=== PATIENT | male | born 1990 | race Caucasian/White ===

== ENCOUNTER 2025-03-02 00:05 | Day surgery (SDC) | payer BC, SELFPAY ==
[2025-03-01 15:39] VITALS: BMI 22.3
--- OUTSIDE RECORDS SUMMARY | 2025-03-02 00:08 | XMS_ITS | Clinical Summary ---
Author Organization [facility] Address [address] [place] [address] Care Team Providers Care Slab Puller Name Role Phone Diego Ulloa MD Primary Care Provid er Allergies No known active allergies Medications clobetasoL (TEMOVATE) 0.05 % creamIndication s:Psoriasis Apply topically 2 (two) times a day 60 g 5 3 Active fluocinonide (LIDEX) 0.05 % creamIndication s:Psoriasis Apply topically 2 (two) times a day 30 g 5 3 Active Additional Information Patient not taking.Reported on 12/02/2024 clobetasoL (TEMOVATE) 0.05 % external solutionIndicat ions:Dermatosis of the Scalp Apply topically 2 (two) times a day 60 mL 5 3 Active hydrOXYzine (ATARAX) 10 mg tabletIndicatio ns:Generalized anxiety disorder Take 1-2 tablets (10-20 mg total) by mouth every 8 (eight) hours as needed for itching 36 tablet 2 4 Active ketoconazole (NIZORAL) 2 % shampoo 4 Active meclizine (ANTIVERT) 12.5 mg tabletIndicatio ns:Dizziness Take 1 tablet (12.5 mg total) by mouth 3 (three) times a day as needed for dizziness 90 tablet 4 4 Active Additional Information Patient not taking.Reported on 12/02/2024 baclofen (LIORESAL) 10 mg tabletIndicatio ns:Neck pain Take 1 tablet (10 mg total) by mouth 3 (three) times a day 30 tablet 2 4 Active Active Problems Problem Noted Date Diagnosed Date Gilbert syndrome 12/02/2024 Encounters Date Type Department Care Team Description 02/22/2025 2:45 PM CDT Lab [facility] Lab [address] [place] [id number] 01/06/2025 2:35 PM ASSOCIATE GENETICS PROFESSOR Lab [facility] [address] [place] [address] 12/02/2024 9:15 AM ASSOCIATE GENETICS PROFESSOR Office Visit [facility] [address] [place] [phone] Diego Ulloa MD Sore throat (Primary Dx); Neck pain; Dizziness; Dysfunction of both eustachian tubes; Psoriasis from Last 3 Months Immunizations Immunization Administration Dates Next Due Influenza, Unspecified 08/11/2024(Deferr ed: Patient Refused),08/27/2023(Deferred: Patient Refused),10/23/2022(Deferred: Patient Refused),10/31/2021(Deferred: Patient Refused) Surgical History Surgery Date Site/Laterality Comments VASECTOMY Medical History Medical History Date Comments Psoriasis Family History Medical History Relation Name Comments Heart attack Father Asthma Mother Relation Name Status Comments Father Mother Social History Tobacco Use Types Packs/Day Years Used Date Smoking Tobacco: Never Smokeless Tobacco: Never Tobacco Cessation:Counseling Given: Not Answered AUDIT-C Answer Date Recorded Q1: How often do you have a drink containing alcohol? Never 01/21/2023 Q2: How many drinks containi ng alcohol do you have on a typical day when you are drinking? Patient does not drink Q3: How often do you have si x or more drinks on one occasion? Never 01/21/2023 PHQ-2 Answer Date Recorded PHQ-2 Total Score 0 08/02/2024 Personal Safety Answer Date Recorded Have you ever been in or are you currently in a harmful physical or emotional relationship or is someone making you feel afraid or unsafe? Denies 08/06/2024 Sex and Gender Information Value Date Recorded Sex Assigned at Not on file Legal Sex Male 5:52 PM ASSOCIATE GENETICS PROFESSOR Gender Identity Male 08/24/2022 2:03 PM CDT Sexual Orientation Not on file Obstetrics History Last Filed Vital Signs Vital Sign Reading Time Taken Comments Blood Pressure 102/66 12/02/2024 9:19 AM ASSOCIATE GENETICS PROFESSOR Pulse 70 12/02/2024 9:19 AM ASSOCIATE GENETICS PROFESSOR Temperature 36.4 C (97.6 F) 12/02/2024 9:19 AM ASSOCIATE GENETICS PROFESSOR Respiratory Rate 16 12/02/2024 9:19 AM ASSOCIATE GENETICS PROFESSOR Oxygen Saturation 99% 12/02/2024 9:19 AM ASSOCIATE GENETICS PROFESSOR Inhaled Oxygen Concentration - - Weight 72.7 kg (160 lb 3.2 oz) 12/02/2024 9:19 A M ASSOCIATE GENETICS PROFESSOR Height 177.8 cm (5' 10 ) 12/02/2024 9:19 AM ASSOCIATE GENETICS PROFESSOR Body Mass Index 22.99 12/02/2024 9:19 AM ASSOCIATE GENETICS PROFESSOR Plan of Treatment Health Maintenance Due Date Last Done Comments DTaP/Tdap/Td Vaccine (1 - Tdap) 1999 Varicella Vaccines (1 of 2 - 13+ 2-dose series) 2001 Regular Well Visit/Exam 18-64 2006 Influenza Vaccine (Season Ended) 2025 Depression Screening 08/02/2025 08/02/2024, 01/21/2023, 01/21/2023 Hepatitis B Screening Completed 09/27/2024 Hepatitis C Screening Completed 09/27/2024 HPV Vaccines Aged Out No longer eligi ble based on patient's age to complete this topic Pneumococcal vaccine <65 Aged Out No longer eligible based on patient's age to complete this topic Procedures Procedure Name Priority Date/Time Associated Diagnosis Comments AMYLASE Routine 02/22/2025 2:55 PM CDT LIPASE Routine 02/22/2025 2:55 PM CDT HEPATIC FUNCTION PANEL Routine 2:55 PM CDT T3, FREE Routine 01/06/2025 2:52 PM ASSOCIATE GENETICS PROFESSOR T4, FREE Routine 01/06/2025 2:52 PM ASSOCIATE GENETICS PROFESSOR HOMOCYSTEINE Routine 01/06/2025 2:52 PM ASSOCIATE GENETICS PROFESSOR LIPOPROTEIN A (LPA) Routine 01/06/2025 2 :52 PM ASSOCIATE GENETICS PROFESSOR THYROGLOBULIN ANTIBODIES Routine 01/06/2025 2:52 PM ASSOCIATE GENETICS PROFESSOR RETICULOCYTES Routine 01/06/2025 2:52 PM ASSOCIATE GENETICS PROFESSOR THYROID PEROXIDASE ANTIBODY Routine 01/06/2025 2:52 PM ASSOCIATE GENETICS PROFESSOR HEPATITIS C ANTIBODY Routine 09/27/2024 11:30 AM ASSOCIATE GENETICS PROFESSOR from Last 3 Months or Most Recently Relevant to Health Maintenance Results * Lipase (02/22/2025 2:55 PM CDT) Lipase 28 10 - 99 Units/L Comment:Testing performed by : [address] [address] Blood 02/22/2025 2:55 PM CDT 02/22/2025 4:58 PM CDT Sonia Madera BUTTING SAW OPERATOR LAB BLOOD ORDERABLES Fin al Result Performing Organization Address [facility] Co de Phone Number [address] [place] [address] * Amylase (02/22/2025 2:55 PM CDT) Amylase 35 30 - 99 Units/L Comment:Testing performed by : [address] [address] Blood 02/22/2025 2:55 PM CDT 02/22/2025 4:58 PM CDT Sonia Madera NP LAB BLOOD ORDERABLES Fin al Result Performing Organization Address City/[facility]/ZIP Co de Phone Number [address] [place] [address] * (ABNORMAL) Hepatic function panel (02/22/2025 2:55 PM CDT) [facility] Bilirubin, total 1.5(H) 0.1 - 1.2 mg/dL Comment:Testing performed by : [address] [address] Bilirubin, direct 0.5(H) 0.1 - 0.3 mg/dL RAFAEL Comment:Testing performed by : [address] [address] Protein, pl 7.1 6.5 - 8.5 g/dL RAFAEL Comment:Testing performed by : [address] [address] Albumin 4.6 3.5 - 5.0 g/dL RAFAEL Comment:Testing performed by : [address] [address] Alk phos 71 40 - 130 Units/L RAFAEL Comment:Testing performed by : [address] [address] ALT 29 7 - 55 Units/L RAFAEL Comment:Testing performed by : [address] [address] AST 23 10 - 50 Units/L RAFAEL Comment:Testing performed by : [address] [address] Blood 02/22/2025 2:55 PM CDT 02/22/2025 4:58 PM CDT us Sonia Madera BUTTING SAW OPERATOR LAB BLOOD ORDERABLES Fin al Result RAFAEL [address] [place] [address] * Thyroglobulin antibodies (01/06/2025 2:52 PM ASSOCIATE GENETICS PROFESSOR) [facility] Anti-thyroglobulin <1.8 <4.0 IUnits/mL [place] ref [facility] Comment: ADDITIONAL INFORMATION PLEASE NOTE: The given thyroglobulin antibody (TgAb) reference cutoff of <4.0 IU/mL is for the evaluation of autoimmune thyroiditis. A cutoff of <1.8 IU/mL may be more suitable for the detection of potential thyroglobulin antibody (TgAb) interference in thyroglobulin immunoassays. The thyroglobulin antibody testing method is an immunoenzymatic assay manufactured by [employer] and performed on the [employer] DXI 800. Values obtained from different assay methods or kits may be different and cannot be used interchangeably. The results cannot be interpreted as absolute evidence for the presence or absence of malignant disease. Test Performed by: [facility] [address] [place] [address] Work And Family Life Consultant: Lynn Vides Ph.D.; CLIA# [id number] Testing performed by: [facility], [address] [place] [address]., [address] Blood 01/06/2025 2:52 PM ASSOCIATE GENETICS PROFESSOR 01/06/2025 3:05 PM ASSOCIATE GENETICS PROFESSOR Sonia Madera LAB BLOOD ORDERABLES Fin al Result Performing Organization Address City/[facility] Co de Phone Number RAFAEL [address] [facility] [place] [address] [place] ref [facility] * Thyroid peroxidase antibody (TPO) (01/06/2025 2:52 PM ASSOCIATE GENETICS PROFESSOR) Anti Thyroid Peroxidase <30 <=34 IUnits/mL Comment: ATPO Interpretive Data Results may be up to 28% higher in patients receiving Itraconazole. Current interpretive data was last revised 2021. Testing performed by: [facility], [address] [place]., [address] Blood 01/06/2025 2:52 PM ASSOCIATE GENETICS PROFESSOR 01/06/2025 5:27 PM ASSOCIATE GENETICS PROFESSOR Sonia Madera BUTTING SAW OPERATOR LAB BLOOD ORDERABLES Fin al Result RAFAEL [address] [facility] [place] [address] * Lipoprotein a (LPa) (01/06/2025 2:52 PM ASSOCIATE GENETICS PROFESSOR) [facility] Lipoprotein A 18 <75 nmol/L [place] ref [facility] Comment: ADDITIONAL INFORMATION Please notice that Lp(a) values are reported in molar units (nmol/L). These units are recommended by professional society guidelines and expert opinion statements. Measured results and risk thresholds are higher than those generated using mass units (mg/dL). Cardiovascular risk increases starting at 75 nmol/L. Lp(a) >=125 nmol/L is considered a risk enhancing factor by the [place] [employer]. This test has been modified from the city carrier's instructions. Its performance characteristics were determined by [facility] in a manner consistent with CLIA requirements. This test has not been cleared or approved by the U.S. Food and Drug Administration. Test Performed by: [place] [address] Work And Family Life Consultant: Lynn Vides Ph.D.; CLIA# [id number] Testing performed by: [address] [address] Blood 01/06/2025 2:52 PM ASSOCIATE GENETICS PROFESSOR 01/06/2025 3:05 PM ASSOCIATE GENETICS PROFESSOR us Sonia Madera BUTTING SAW OPERATOR LAB BLOOD ORDERABLES Fin al Result Performing Organization Address [facility] Co de Phone Number RAFAEL [address] [facility] [place] [address] [place] ref [facility] * Reticulocyte Count (01/06/2025 2:52 PM ASSOCIATE GENETICS PROFESSOR) [facility] Retics, absolute 0.054 0.020 - 0.087 M/cumm Comment:Testing performed by : [address] [address] Retics 1.0 0.4 - 2.9 % RAFAEL STEIN Comment:Testing performed by : [facility], [address] [place] [address]., [address] Reticulocyte Hgb 33.3 30.5 - 38.0 pg RAFAEL STEIN Comment:Testing performed by : [facility], [address] [place] [address]., [address] Blood 01/06/2025 2:52 PM ASSOCIATE GENETICS PROFESSOR 01/06/2025 3:05 PM ASSOCIATE GENETICS PROFESSOR Sonia Madera BUTTING SAW OPERATOR LAB BLOOD ORDERABLES Fin al Result Performing Organization Address City/[facility]/ZIP Co de Phone Number PARRISHJO-ANN [address] [place] [address] * T3, free (01/06/2025 2:52 PM ASSOCIATE GENETICS PROFESSOR) Free T3 3.2 2.0 - 4.4 pg/mL Blood 01/06/2025 2:52 PM ASSOCIATE GENETICS PROFESSOR 01/06/2025 4:35 PM ASSOCIATE GENETICS PROFESSOR Sonia Madera BUTTING SAW OPERATOR LAB BLOOD ORDERABLES Fin al Result Performing Organization Address [facility] Co de Phone Number PARRISH[address] [place] [address] * T4, free (01/06/2025 2:52 PM ASSOCIATE GENETICS PROFESSOR) Free T4 1.37 0.90 - 1.70 ng/dL Comment:Testing performed by : [facility], [address] [place] [address]., [address] Blood 01/06/2025 2:52 PM ASSOCIATE GENETICS PROFESSOR 01/06/2025 3:05 PM ASSOCIATE GENETICS PROFESSOR Sonia Madera BUTTING SAW OPERATOR LAB BLOOD ORDERABLES Fin al Result PARRISH[address] [place] [address] * (ABNORMAL) Homocysteine (01/06/2025 2:52 PM ASSOCIATE GENETICS PROFESSOR) Homocysteine 18.2(H) 0.0 - 15.0 mcmol/L Comment:Testing performed by : [facility], [address] [place]., [address] Blood 01/06/2025 2:52 PM ASSOCIATE GENETICS PROFESSOR 01/06/2025 5:27 PM ASSOCIATE GENETICS PROFESSOR Sonia Madera BUTTING SAW OPERATOR LAB BLOOD ORDERABLES Fin al Result Performing Organization Address City/[facility]/ZIP Co de Phone Number RAFAEL [address] [facility] [place] [address] * Hepatitis C antibody Blood (09/27/2024 11:30 AM ASSOCIATE GENETICS PROFESSOR) Pathologist [facility] Hep C Ab Nonreactive Nonreactive Comment: Antibodies to HCV not detected. Does NOT exclude the possibility of recent exposure to HCV. Current interpretive data was last revised on 22 Interpretive Data Nonreactive: Antibodies to HCV not detected. Does NOT exclude the possibility of recent exposure to HCV. Equivocal: Equivocal for HCV antibodies. Supplemental molecular testing will be automatically performed to determine infection status in accordance with current CDC screening recommendations. Reactive: Positive for HCV antibodies. This may represent current or past HCV infection. Supplemental molecular testing will be automatically performed to determine current infection status in accordance with current CDC screening recommendations. Interpretive data was last revised on 2020. Blood 09/27/2024 11:3 0 AM ASSOCIATE GENETICS PROFESSOR 09/27/2024 2:42 PM ASSOCIATE GENETICS PROFESSOR us Tammy WILKS LAB MICROBIOLOGY - GENERAL ORDERABLES Final Result Performing Organization Address City/[facility] Co de Phone Number [address] [employer] [place] [address] from Last 3 Months or Most Recently Relevant to Health Maintenance Insurance [place] Care Teams Slab Puller Relationship Specialty Start Date End Date Diego Ulloa MD [employer] [address] [place] [address] PCP - General Family Medicine 01/21/23
--- OUTSIDE RECORDS SUMMARY | 2025-03-02 00:08 | XMS_ITS | Clinical Summary ---
Author Organization [email or web address] [facility] Address [address] [place] [phone] Care Team Providers Care Nursing Executive Name Role Phone Unavailable Primary Care Provider Unavailabl e Allergies No known active allergies Medications No known medications Active Problems No known active problems Social History Tobacco Use Types Packs/Day Years Used Date Smoking Tobacco: Never Alcohol Use Standard Drinks/Week Comments Never 0 (1 standard drink = 0.6 oz pur e alcohol) Sex and Gender Information Value Date Recorded Sex Assigned at Not on file Legal Sex Male 10:20 AM CDT Gender Identity Not on file Sexual Orientation Not on file Last Filed Vital Signs Vital Sign Reading Time Taken Comments Blood Pressure - - Pulse - - Temperature - - Respiratory Rate - - Oxygen Saturation - - Inhaled Oxygen Concentration - - Weight 79.4 kg (175 lb) 02/25/2022 11:10 AM CDT Height 177.8 cm (5' 10 ) 02/25/2022 11:10 AM CDT Body Mass Index 25.11 02/25/2022 11:10 AM CDT Plan of Treatment Health Maintenance Due Date Last Done Comments DTAP/TDAP/TD VACCINES (1 - Tdap) 2007 HEPATITIS B VACCINES (1 of 3 - 19+ 3-dose series) 2007 INFLUENZA VACCINE (#1) 2024 HPV VACCINES Aged Out No longer eligi ble based on patient's age to complete this topic [place] [address] [place] [address] Lola Pirindola ACCESS CHOICE [facility]
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
--- OUTSIDE RECORDS SUMMARY | 2025-03-02 00:08 | XMS_ITS | CONTINUITY OF CARE DOCUMENT ---
Author Name abbey potter Address Unknown Organization [facility] Address [address] [place] [address] [address] [place] [address] Phone [phone] Care Team Providers Care Amortization Clerk Name Role Phone abbey potter Unavailable Unavailable
--- OUTSIDE RECORDS SUMMARY | 2025-03-02 00:08 | XMS_ITS | Referral Summary ---
Author Organization [facility] Address [address] [place] [address] Care Team Providers Care Traffic Control Supervisor Name Role Phone Diego Ulloa MD Primary Care Provid er Encounters Date Type Department Care Team Description 02/22/2025 2:45 PM CDT Lab [facility] [address] [place] [id number] 01/06/2025 2:35 PM HOT OILER Lab [facility] [address] [place] [id number] 12/02/2024 9:15 AM HOT OILER Office Visit [facility] [address] [phone] Diego Ulloa MD Sore throat (Primary Dx); Neck pain; Dizziness; Dysfunction of both eustachian tubes; Psoriasis from Last 3 Months Allergies No known active allergies Medications clobetasoL [...] Noted Date Diagnosed Date Gilbert syndrome 12/02/2024 Immunizations Immunization Administration Dates Next Due Influenza, Unspecified 08/11/2024(Deferr ed: Patient Refused),08/27/2023(Deferred: Patient Refused),10/23/2022(Deferred: Patient Refused),10/31/2021(Deferred: Patient Refused) Social History Tobacco Use Types Packs/Day Years [...] on file Legal Sex Male 5:52 PM HOT OILER Gender Identity Male 08/24/2022 2:03 PM CDT Sexual Orientation Not on file Last Filed Vital Signs Vital Sign Reading Time Taken Comments Blood Pressure 102/66 12/02/2024 9:19 AM HOT OILER Pulse 70 12/02/2024 9:19 AM HOT OILER Temperature 36.4 C (97.6 F) 12/02/2024 9:19 AM HOT OILER Respiratory Rate 16 12/02/2024 9:19 AM HOT OILER Oxygen Saturation 99% 12/02/2024 9:19 AM HOT OILER Inhaled Oxygen Concentration - - Weight 72.7 kg (160 lb 3.2 oz) 12/02/2024 9:19 A M HOT OILER Height 177.8 cm (5' 10 ) 12/02/2024 9:19 AM HOT OILER Body Mass Index 22.99 12/02/2024 9:19 AM HOT OILER Plan of Treatment Not on file Procedures Procedure Name Priority Date/Time Associated Diagnosis Comments AMYLASE Routine 02/22/2025 2:55 PM CDT LIPASE Routine 02/22/2025 2:55 PM CDT HEPATIC FUNCTION PANEL Routine 2:55 PM CDT T3, FREE Routine 01/06/2025 2:52 PM HOT OILER T4, FREE Routine 01/06/2025 2:52 PM HOT OILER HOMOCYSTEINE Routine 01/06/2025 2:52 PM HOT OILER LIPOPROTEIN A (LPA) Routine 01/06/2025 2 :52 PM HOT OILER THYROGLOBULIN ANTIBODIES Routine 01/06/2025 2:52 PM HOT OILER RETICULOCYTES Routine 01/06/2025 2:52 PM HOT OILER THYROID PEROXIDASE ANTIBODY Routine 01/06/2025 2:52 PM HOT OILER HEPATITIS C ANTIBODY Routine 09/27/2024 11:30 AM HOT OILER from Last 3 Months or Most Recently Relevant to Health Maintenance Results * Lipase (02/22/2025 2:55 PM CDT) Pathologist [facility] Lipase 28 10 - 99 Units/L Comment:Testing performed by : [address] [address] Blood 02/22/2025 2:55 PM CDT 02/22/2025 4:58 PM CDT Sonia Madera TAKE UP OPERATOR LAB BLOOD ORDERABLES Fin al Result Performing Organization Address [facility] Co de Phone Number [address] [place] [address] * Amylase (02/22/2025 2:55 PM CDT) [facility] Amylase 35 30 - 99 Units/L Comment:Testing performed by : [address] [address] Blood 02/22/2025 2:55 PM CDT 02/22/2025 4:58 PM CDT Sonia Madera TAKE UP OPERATOR LAB BLOOD ORDERABLES Fin al Result Performing Organization Address City/[facility] Co de Phone Number [address] [place] [address] * (ABNORMAL) Hepatic function panel (02/22/2025 2:55 PM CDT) [facility] Bilirubin, total 1.5(H) 0.1 - 1.2 mg/dL Comment:Testing performed by : [address] [address] Bilirubin, direct 0.5(H) 0.1 - 0.3 mg/dL RAFAEL Comment:Testing performed by : [address] [address] Protein, pl 7.1 6.5 - 8.5 g/dL RAFAEL Comment:Testing performed by : [address] [address] Albumin 4.6 3.5 - 5.0 g/dL RAFAEL Comment:Testing performed by : [facility], [address] [place] [address]., [address] Alk phos 71 40 - 130 Units/L RAFAEL Comment:Testing performed by : [facility], [address] [place] [address]., [address] ALT 29 7 - 55 Units/L RAFAEL Comment:Testing performed by : [address] [address] AST 23 10 - 50 Units/L RAFAEL Comment:Testing performed by : [address] [address] Blood 02/22/2025 2:55 PM CDT 02/22/2025 4:58 PM CDT us Sonia Madera TAKE UP OPERATOR LAB BLOOD ORDERABLES [facility] al Result [facility] [address] [facility] [place] [address] * Thyroglobulin antibodies (01/06/2025 2:52 PM HOT OILER) Anti-thyroglobulin <1.8 <4.0 IUnits/mL [facility] ref Lab Comment: ADDITIONAL INFORMATION PLEASE NOTE: The given thyroglobulin antibody (TgAb) reference cutoff of <4.0 IU/mL is for the evaluation of autoimmune thyroiditis. A cutoff of <1.8 IU/mL may be more suitable for the detection of potential thyroglobulin antibody (TgAb) interference in thyroglobulin immunoassays. The thyroglobulin antibody testing method is an immunoenzymatic assay manufactured by [employer] and performed on the [employer] DXI 800. Values obtained from different assay methods or kits may be different and cannot be used interchangeably. The results cannot be interpreted as absolute evidence for the presence or absence of malignant disease. Test Performed by: [facility] [address] [place] [address] Resin Mixer: Lynn Vides Ph.D.; CLIA# [id number] Testing performed by: [facility], [address] [place] [address]., [address] Blood 01/06/2025 2:52 PM HOT OILER 01/06/2025 3:05 PM HOT OILER Sonia Madera TAKE UP OPERATOR LAB BLOOD ORDERABLES Fin al Result Performing Organization Address [facility] Co de Phone Number [address] [place] [address] [facility] ref Lab * Thyroid peroxidase antibody (TPO) (01/06/2025 2:52 PM HOT OILER) Anti Thyroid Peroxidase <30 <=34 IUnits/mL Comment: ATPO Interpretive Data Results may be up to 28% higher in patients receiving Itraconazole. Current interpretive data was last revised 2021. Testing performed by: [facility], [address] [place]., [address] Blood 01/06/2025 2:52 PM HOT OILER 01/06/2025 5:27 PM [facility]ER [facility] BLOOD ORDERABLES Fin al Result Performing Organization Address [facility] de Phone Number [address] [address] * Lipoprotein a (LPa) (01/06/2025 2:52 PM HOT OILER) Lipoprotein A 18 <75 nmol/L [facility] ref Lab Comment: ADDITIONAL INFORMATION Please notice that Lp(a) values are reported in molar units (nmol/L). These units are recommended by professional society guidelines and expert opinion statements. Measured results and risk thresholds are higher than those generated using mass units (mg/dL). Cardiovascular risk increases starting at 75 nmol/L. Lp(a) >=125 nmol/L is considered a risk enhancing factor by the [place] [employer]. This test has been modified from the taffy candy maker's instructions. Its performance characteristics were determined by [facility] in a manner consistent with CLIA requirements. This test has not been cleared or approved by the U.S. Food and Drug Administration. Test Performed by: [address] [address] Resin Mixer: Lynn Vides Ph.D.; CLIA# [id number] Testing performed by: [address] [address] Blood 01/06/2025 2:52 PM HOT OILER 01/06/2025 3:05 PM HOT OILER Sonia Madera LAB BLOOD ORDERABLES Fin al Result [facility] [address] [facility] [place] [address] [facility] Lab * Reticulocyte Count (01/06/2025 2:52 PM HOT OILER) Retics, absolute 0.054 0.020 - 0.087 M/cumm Comment:Testing performed by : [address] [address] Retics 1.0 0.4 - 2.9 % RAFAEL Comment:Testing performed by : [address] [address] Reticulocyte Hgb 33.3 30.5 - 38.0 pg RAFAEL Comment:Testing performed by : [address] [address] Blood 01/06/2025 2:52 PM HOT OILER 01/06/2025 3:05 PM HOT OILER Sonia Madera TAKE UP OPERATOR LAB BLOOD ORDERABLES Fin al Result [facility] [address] [facility] [place] [address] * T3, free (01/06/2025 2:52 PM HOT OILER) [facility] Free T3 3.2 2.0 - 4.4 pg/mL Blood 01/06/2025 2:52 PM HOT OILER 01/06/2025 4:35 PM HOT OILER Sonia Madera TAKE UP OPERATOR LAB BLOOD ORDERABLES Fin al Result Performing Organization Address City/[facility]/ZIP Co de Phone Number [address] [place] [address] * T4, free (01/06/2025 2:52 PM HOT OILER) [facility] Free T4 1.37 0.90 - 1.70 ng/dL Comment:Testing performed by : [facility], [address] [place] [address], [address] Blood 01/06/2025 2:52 PM HOT OILER 01/06/2025 3:05 PM HOT OILER Sonia Madera TAKE UP OPERATOR LAB BLOOD ORDERABLES Fin al Result Performing Organization Address [facility] Co de Phone Number [address] [place] [address] * (ABNORMAL) Homocysteine (01/06/2025 2:52 PM HOT OILER) [facility] Homocysteine 18.2(H) 0.0 - 15.0 mcmol/L Comment:Testing performed by : [facility], [address] [place]., [address] Blood 01/06/2025 2:52 PM HOT OILER 01/06/2025 5:27 PM HOT OILER Sonia Madera TAKE UP OPERATOR LAB BLOOD ORDERABLES Fin al Result Performing Organization Address City/[facility]/ZIP Co de Phone Number [address] [place] [place] [address] * Hepatitis C antibody Blood (09/27/2024 11:30 AM HOT OILER) Hep C Ab Nonreactive Nonreactive Comment: Antibodies [...] on 2020. Blood 09/27/2024 11:3 0 AM HOT OILER 09/27/2024 2:42 PM HOT OILER Tammy WILKS LAB MICROBIOLOGY - GENERAL ORDERABLES Final Result [facility] [address] [facility] [place] [address] from Last 3 Months or Most Recently Relevant to Health Maintenance [place] [employer] [place] [employer] [place] Care Teams Traffic Control Supervisor Relationship Specialty Start Date End Date Diego Ulloa MD [facility] [address] [place] [address] PCP - General Family Medicine 01/21/23
--- OUTSIDE RECORDS SUMMARY | 2025-03-02 00:08 | XMS_ITS | Clinical Summary ---
Author Organization [facility] Address [address] [place] [address] Care Team Providers Care Reiki Practitioner Name Role Phone Unavailable Primary Care Provider Unavailabl e Source Comments [facility] [employer],non-owned Affiliates and Associated Physician Practices is amultiple site organization consisting of ambulatory clinics and hospital sitesin [place], [place], [place] and [place]. This disclosure is being madepursuant to the Care Everywhere program and may not contain all information available regarding this patient. Last updated 18.[facility] [employer] Allergies No known active allergies Medications * Be aware that medications may not be up to date on this document. Alwaysverify current medications with the patient. No known medications Social History Tobacco Use Types Packs/Day Years Used Date Smoking Tobacco: Never Smokeless Tobacco: Never Sex and Gender Information Value Date Recorded Sex Assigned at Not on file Legal Sex Male 9:14 AM CDT Gender Identity Not on file Sexual Orientation Not on file Last Filed Vital Signs Vital Sign Reading Time Taken Comments Blood Pressure 108/74 08/18/2019 10:57 AM CDT Pulse 108 08/18/2019 10:57 AM CDT Temperature 37.6 C (99.6 F) 08/18/2019 10:57 AM CDT Respiratory Rate 16 08/18/2019 10:57 AM CDT Oxygen Saturation 98% 08/18/2019 10:57 AM CDT Inhaled Oxygen Concentration - - Weight 72.6 kg (160 lb) 08/18/2019 10:57 AM CDT Height 177.8 cm (5' 10 ) 08/18/2019 10:57 AM CDT Body Mass Index 22.96 08/18/2019 10:57 AM CDT Plan of Treatment Health Maintenance Due Date Last Done Comments HIV SCREENING 2003 HEPATITIS C SCREENING 05/12/2006 DTAP/TDAP/TD VACCINES (1 - Tdap) 2007 HEPATITIS B VACCINE (1 of 3 - 19+ 3-dose series) 2007 COVID-19 VACCINE (1 - 2023-2 5 season) 2024 DEPRESSION SCREENING 11/10/2024 INFLUENZA VACCINE (Season Ended) 2025 ZOSTER VACCINE (1 of 2) 2038 HIB VACCINE Aged Out No longer eligi ble based on patient's age to complete this topic HPV VACCINE Aged Out No longer eligi ble based on patient's age to complete this topic MENINGOCOCCAL (Group B) VACC INE SHARED DECISION-MAKING Aged Out No longer eligibl e based on patient's age to complete this topic MENINGOCOCCAL GROUPS A/C/Y/W VACCINE Aged Out No longer eligible b ased on patient's age to complete this topic PNEUMOCOCCAL VACCINE Aged Out No long er eligible based on patient's age to complete this topic Insurance LAZARA
[2025-03-02 12:07] VITALS: BP 112/69; PULSE 76; RESP 16; TEMP 36.6; O2SAT 98
[2025-03-02] MEDS: LACTATED RINGERS 1,000 ML 150 ML IV CONT (12:15)
--- NOTE | 2025-03-02 12:25 | WPDANESEPPF ---
Anes - Initial Pre Proc Eval Procedure: Operation Date: 03/02/25 13:00 Proposed Procedures p Esophagogastroduodenoscopy - Jag Warren MD Date/Time: 03/02/25 12:25 Surgeon: Jag Warren MD Pre Op Diagnosis: Right upper quadrant pain Patient Data Age: 34 Gender: M Height: 1.78 m Weight: 70.5 kg Last Vital Signs Temp 36.6 C 03/02/25 12:07 Pulse 76 03/02/25 12:07 Resp 16 03/02/25 12:07 BP 112/69 03/02/25 12:07 Pulse Ox 98 03/02/25 12:07 O2 Del Method Room Air 03/02/25 12:07 Allergies Allergy/AdvReac Type Severity Reaction Status Date / Time No Known Allergies Allergy Verified 03/02/25 11:59 Home Medications ?Medication ?Instructions ?Recorded ?Confirmed ?Type risankizumab-rzaa 60 mg/mL 600 mg IV ONCE 02/18/25 03/02/25 History intravenous solution (Skyrizi) Patient hx anesthesia problems: none Family hx anesthesia problems: none Results Review: All pre-operative results and documents have been reviewed as part of the pre-operative evaluation. [facility] Past Medical History Medical History (Updated 02/18/25 @ 11:06 by Sonia Madera APRN) Psoriasis Social History Social History Smoking status: Never smoker Substance use type: does not use Living arrangements: with family Spiritual care concerns: No Anes - Eval Final PreProcedure Day of Procedure 03/02/25 12:25 Patient weight: normal Heart: regular rate and rhythm Lungs: clear to auscultation and normal air movement Airway: Mallampati scale class II Neurological: alert and oriented Last oral intake: >/= 8 hours ASA classification: II Emergent: no Anesthetic plan: proceed Anesthesia type and monitoring: general GIVS and standard monitoring Results Review: All pre-operative results and documents have been reviewed as part of the pre-operative evaluation. Informed Consent: The patient's anesthetic plan and its attendant risks and benefits were discussed with the patient/family/POA. Questions were solicited and answers provided to the satisfaction of the patient/family/POA.
--- NOTE | 2025-03-02 13:12 | PM.IMHP ---
H&P: HPI History of Present Illness Date/Time: 03/02/25 13:12 Chief Complaint: Abdominal pain Narrative: this patient has been complaining of intermittent right upper quadrant pain/epigastric pain for several months. He has taken several medications but the pain is still present. He is referred for EGD. Review of Systems Review of Systems: All systems reviewed & are unremarkable except as noted in HPI and below PMFSH Past Medical History Medical History (Updated 02/18/25 @ 11:06 by Sonia Madera APRN) Psoriasis Social History Social History Smoking status: Never smoker Substance use type: does not use Living arrangements: with family Spiritual care concerns: No Meds Home Medications and Allergies Home Medications ?Medication ?Instructions ?Recorded ?Confirmed ?Type risankizumab-rzaa 60 mg/mL 600 mg IV ONCE 02/18/25 03/02/25 History intravenous solution (Skyrizi) Allergies Allergy/AdvReac Type Severity Reaction Status Date / Time No Known Allergies Allergy Verified 03/02/25 11:59 Vital Signs Vital Signs - 24 hr 03/02/25 12:07 Temperature 97.9 F Pulse Rate 76 Respiratory Rate 16 Blood Pressure 112/69 Pulse Oximetry 98 Oxygen Delivery Room Air Exam Const: General: cooperative and healthy appearing Resp: Effort & Inspection: normal respiratory effort and able to speak in complete sentences Auscultation: clear to auscultation bilaterally Cardio: Rate: regular rate Rhythm: regular rhythm GI: Inspection: normal to inspection GI Palp: No No hepatosplenomegaly present Auscultation: normal bowel sounds Rectal Exam: deferred Skin: General skin exam: normal color Psych: Appearance: grossly normal Mental Status: mental status grossly normal Assessment and Plan Assessment and plan (1) RUQ pain: Code(s): R10.11 - Right upper quadrant pain Status: Acute Assessment and Plan: The patient is deemed a good candidate for the procedure. Consent signed. Will proceed.
[2025-03-02] MEDS: BENZOCAINE (*SP) 60 ML SPRAY CAN (HURRICAINE) 1 SPRAY MUCOUS MEM (13:19)
[2025-03-02 13:27] VITALS: BP 98/58; PULSE 69; RESP 21; O2SAT 97
[2025-03-02 13:37] VITALS: BP 94/55; PULSE 68; RESP 17; O2SAT 97
[2025-03-02 13:40] VITALS: BP 100/55; PULSE 75; RESP 22; O2SAT 100
== END 2025-03-02 13:50 | disposition home or self-care (01) ==
PROVIDERS: PCP Family Medicine; Referring Provider Nurse Practitioner; Visit Provider Internal Medicine Gastroenterology
PROC: 0DJ08ZZ Inspection of Upper Intestinal Tract, Via Natural or Artificial Opening Endoscopic (ICD-10-PCS; CPT 43239; principal; 2025-03-02 13:00)
DX: R10.11 Right upper quadrant pain (principal); R10.13 Epigastric pain; L40.9 Psoriasis, unspecified
CPT/HCPCS: 43239; 88305; J2003; J2704; J7120